=== PATIENT | female | born 1985 | race Caucasian/White ===

== ENCOUNTER 2016-08-14 14:56 | Emergency (ER) | payer BC ==
[~2016-08-14] VITALS: Ht 170.2 cm; Wt 70.5 kg
[2016-08-14 15:01] VITALS: TEMP 36.8; Ht 170.2 cm; Wt 70.5 kg
[2016-08-14] MEDS ORDERED: IBUP-103 PO (15:21)
--- NOTE | 2016-08-14 15:36 | DIAGNOSTIC IMAGING REPORT ---
CT OF THE HEAD WITHOUT CONTRAST CLINICAL HISTORY: Right sided head injury. COMPARISON STUDY: No previous studies for comparison. CT DOSE: 638.56 mGycm TECHNIQUE: Helical axial images of the head were obtained without IV contrast. Automated exposure control was utilized for the study. FINDINGS: No acute intracranial hemorrhage, midline shift or mass effect is present. Ventricular system is normal. Basilar cisterns are patent. No extra-axial collections are present. Rao-white differentiation is maintained. There is no calvarial fracture. There is mild mucosal thickening of the sphenoid sinuses. IMPRESSION: 1. No acute intracranial findings. 2. No calvarial fracture. 3. Mild mucosal thickening of the sphenoid sinuses. Electronically signed by: Jose Roblero M.D. 08/14/2016 3:35 PM Dictated Date/Time: 08/14/2016 3:33 PM
--- NOTE | 2016-08-14 16:00 | EMERGENCY ROOM VISIT NOTE ---
ED Visit Note First contact with patient: 15:06 Chief Complaint: Head Injury RIGHT Side History of Present Illness: Patient is a 31-year-old female who presents to the emergency Department this afternoon for evaluation after sustaining a head injury last evening. She reports that while attempting to get into her car she hit the side of her head on the vehicle. She had immediate pain which was very intense in nature. She reports persistent dull pain throughout the day. She is had issues with focus and concentration today as well as some mild blurry vision. She does report a history of migraine headaches, but reports that this does not feel the same. She is not been nauseated. There is been no vomiting. There is been no photophobia or phonophobia. The patient is tried ibuprofen with minimal relief of symptoms. She complains some pain radiating down the RIGHT side of her head and neck. The patient rates her current discomfort as a 5/10. She denies any fevers, chills, dizziness, lightheadedness, vomiting, or numbness/weakness into the extremities. The patient uses Sumatriptan as needed for migraines. There is no other reported medical conditions otherwise. Medications: As above. Allergies: No known allergies. PMH: No pertinent past medical history. SHx: Patient is a 31-year-old female who lives locally. ROS: All pertinent positive and negative review of systems are appropriately documented in the History of Present Illness. Physical Exam: VITAL SIGNS - Vital signs and nursing notes were reviewed. GENERAL - 31-year-old female appearing her stated age who is in no acute distress. Communicates well with provider and answers questions appropriately. HEAD - Normocephalic, Atraumatic. No De La Paz's Sign or Raccoon's Eyes. No depressed skull fractures palpable. EYES - PERRL with EOMI bilaterally. Sclera anicteric. Palpebral conjunctiva pink and moist with no injection noted. EARS - No deformities of external structures noted on gross examination bilaterally. No pain elicited with palpation of the tragus bilaterally. External auditory canals without discharge or otorrhea. Tympanic membranes pearly rao without retraction or bulging. NOSE - Midline and without cyanosis. No epistaxis or purulent drainage noted. Septum midline without deviation or septal hematoma noted. MOUTH/OROPHARYNX - Without perioral cyanosis. Buccal mucosa pink and moist and without leukoplakia. Tongue midline with equal elevation of palate bilaterally. No tonsillar hypertrophy, erythema, or exudates noted. Good dentition noted. NECK - Neck with FROM. Supple to palpation. No lymphadenopathy noted. No nuchal rigidity. LUNGS - Chest wall symmetric without accessory muscle use, intercostals retractions, or central cyanosis. Normal vesicular breath sounds CTA B/L. No wheezes, rales, or rhonchi appreciated. CARDIAC - RRR with S1/S2. No murmur, rubs, or gallops appreciated. EXTREMITIES - No pretibial edema present. +3/5 radial and dorsalis pedis pulses palpated throughout. FROM with no tremors, fasciculations, or clonus noted on PROM throughout. +5/5 strength noted in UE/LE bilaterally. NEUROLOGIC - Cranial nerves II through XII grossly intact. Sensory intact to light touch throughout. Patellar reflexes +2/4. Patient able to perform rapid alternating movements appropriately. Negative Romberg and Pronator Drift. Negative [id number]. PSYCH - A&Ox3 and cooperates fully with examiner. Pt is very pleasant and interacts well with examiner. IMAGING: CT OF THE HEAD WITHOUT CONTRAST CLINICAL HISTORY: Right sided head injury. COMPARISON STUDY: No previous studies for comparison. CT DOSE: 638.56 mGycm TECHNIQUE: Helical axial images of the head were obtained without IV contrast. Automated exposure control was utilized for the study. FINDINGS: No acute intracranial hemorrhage, midline shift or mass effect is present. Ventricular system is normal. Basilar cisterns are patent. No extra-axial collections are present. Rao-white differentiation is maintained. There is no calvarial fracture. There is mild mucosal thickening of the sphenoid sinuses. IMPRESSION: 1. No acute intracranial findings. 2. No calvarial fracture. 3. Mild mucosal thickening of the sphenoid sinuses. ED Course: Patient was seen and evaluated by myself. I had a lengthy discussion with the patient and regarding symptoms. CT of the head was obtained. Imaging results above. Imaging results were reviewed with the patient and family member who acknowledge understanding. The patient was educated on brain rest as well as worrisome symptoms for return visit to the emergency department. Patient discharged home in good condition with her driving. In the evaluation and treatment of this patient, the following differential diagnoses were considered: Concussion, Contrecoup Injury, Brain Tumor, Depression, Encephalitis, Hypothyroidism, Meningitis, CVA, TIA, Migraine, Cluster Headache, Intracranial Abnormality, Intracranial Hemorrhage, Subdural Hematoma, Subarachnoid Hemorrhage, Hydrocephalus. Impression: Closed Head Injury, Concussion Discharge Instructions: You have been treated in the Emergency Department for a Closed Head Injury. CT Scan of your head/brain demonstrated no acute bleeding or other abnormalities. This does not completely rule out the risk for future damage to the brain. For pain control, you can use the following akyu-oyb-sqkvvzu medicines (if >12 yo): - Regular strength (325mg/tab) Tylenol (acetaminophen) 2 tabs every 4-6 hours as needed. Do not exceed 12 tablets in a 24 hour period. Avoid taking more than 4 grams (4000 mg) of Tylenol per day. This includes any other sources of acetaminophen you may take on a regular basis. - Regular strength (200 mg/tab) Advil (ibuprofen) 1-2 tabs every 4-6 hours as needed. Do not exceed a dose of 3200 mg per day. You should relax in a quiet, dark place for the rest of the day. Avoid any possible triggers including: cigarette smoke, caffeine, nicotine, chocolate, wine, beer, loud noises or music, or bright lights. You should schedule a follow-up appointment in 2-3 days with your Primary Care Provider or established Neurologist for further evaluation and treatment of your Headache. Return to the Emergency Department if your current symptoms worsen despite treatment course outlined above, or if you develop any of the following symptoms : intractable pain despite aforementioned treatment course, visual disturbances , loss of vision, unilateral weakness or facial drooping, slurring of speech, loss of coordination, or loss of consciousness. Current/Historical Medications Scheduled Ibuprofen Tab (Advil), 400-600 MG PO Q6H Allergies Coded Allergies: No Known Allergies (Unverified , 08/14/16) Vital Signs Date Time Temp Pulse Resp B/P Pulse Ox O2 Delivery O2 Flow Rate FiO2 08/14/16 16:07 71 16 125/69 98 Room Air 08/14/16 15:04 18 08/14/16 15:01 36.8 76 20 123/68 99 Room Air Departure Information Impression Primary Impression: Closed head injury Additional Impression: Concussion Dispostion Home / Self-Care Condition GOOD Referrals No Doctor, Assigned (PCP) Patient Instructions ED Concussion, Replaced By [facility] Additional Instructions You have been treated in the Emergency Department for a Closed Head Injury. CT Scan of your head/brain demonstrated no acute bleeding or other abnormalities. This does not completely rule out the risk for future damage to the brain. For pain control, you can use the following citp-yhv-tswjayn medicines (if >12 yo): - Regular strength (325mg/tab) Tylenol (acetaminophen) 2 tabs every 4-6 hours as needed. Do not exceed 12 tablets in a 24 hour period. Avoid taking more than 4 grams (4000 mg) of Tylenol per day. This includes any other sources of acetaminophen you may take on a regular basis. - Regular strength (200 mg/tab) Advil (ibuprofen) 1-2 tabs every 4-6 hours as needed. Do not exceed a dose of 3200 mg per day. You should relax in a quiet, dark place for the rest of the day. Avoid any possible triggers including: cigarette smoke, caffeine, nicotine, chocolate, wine, beer, loud noises or music, or bright lights. You should schedule a follow-up appointment in 2-3 days with your Primary Care Provider or established Neurologist for further evaluation and treatment of your Headache. Return to the Emergency Department if your current symptoms worsen despite treatment course outlined above, or if you develop any of the following symptoms : intractable pain despite aforementioned treatment course, visual disturbances , loss of vision, unilateral weakness or facial drooping, slurring of speech, loss of coordination, or loss of consciousness. Problem Qualifiers Primary Impression: Closed head injury Encounter type: initial encounter Qualified Codes: S09.90XA - Unspecified injury of head, initial encounter Additional Impression: Concussion Encounter type: initial encounter Loss of consciousness presence/duration: without LOC Qualified Codes: S06.0X0A - Concussion without loss of consciousness, initial encounter
[2016-08-14 16:07] VITALS: BP 125/69; PULSE 71; O2SAT 98
== END 2016-08-14 16:07 | disposition home or self-care (01) ==
LOC: C.EDB 14:58 → EDBD 14:58 → C.EDD 16:07
DX: S06.0X0A Concussion without loss of consciousness, initial encounter (principal); W22.8XXA Striking against or struck by other objects, initial encounter

== ENCOUNTER → 2017-05-15 | Outpatient (CLI) | payer BC ==
[~2017-05-15] MED LIST: IBUP-103 PO
--- NOTE | 2017-05-15 12:17 | DIAGNOSTIC IMAGING REPORT ---
CHEST 2 VIEWS ROUTINE HISTORY: 32 years-old Female R07.89 Atypical chest [id number] acute atypical chest pain COMPARISON: None available TECHNIQUE: PA and lateral views of the chest FINDINGS: Cardiomediastinal and hilar silhouettes are within normal limits. There is no pneumothorax, pleural effusion, focal airspace consolidation or overt pulmonary edema. Bones of the chest are grossly intact. IMPRESSION: No acute cardiopulmonary process. The above report was generated using voice recognition software. It may contain grammatical, syntax or spelling errors. Electronically signed by: Victor Manuel Pearce M.D. 05/15/2017 12:16 PM Dictated Date/Time: 05/15/2017 12:15 PM
--- NOTE | 2017-05-15 12:21 | DIAGNOSTIC IMAGING REPORT ---
R KNEE 3 VIEWS CLINICAL HISTORY: M25.561 Knee pain, [id number] pain COMPARISON: None. DISCUSSION: The bones and joint spaces appear intact. There is no evidence of fracture, dislocation or bony disease. There is no evidence for soft tissue swelling. IMPRESSION: Negative study. The above report was generated using voice recognition software. It may contain grammatical, syntax or spelling errors. Electronically signed by: Handy Pascal M.D. 05/15/2017 12:20 PM Dictated Date/Time: 05/15/2017 12:19 PM
[2017-05-15 13:11] LABS: BASO % 0.4 %; BASO ABS # 0.02 K/uL (0-0.2); COMPLETE YES; EOS % 1.3 %; HEMATOCRIT 41.1 % (37-47); LYMPH % 30.3 %; LYMPH ABS # 1.59 K/uL (1.2-3.4); MEAN CELL VOLUME 89.5 fL (80-100); MEAN CORPUSCULAR HEMOGLOBIN 30.3 pg (25-34); MEAN CORPUSCULAR HGB CONC 33.8 g/dl (32-36); MEAN PLATELET VOLUME 11.3 fL (7.4-10.4); MONO % 6.5 %; NEUT % 61.5 %; PLATELET COUNT 191 K/uL (130-400); RED BLOOD COUNT 4.59 M/uL (4.2-5.4); WHITE BLOOD COUNT 5.25 K/uL (4.8-10.8)
[2017-05-15 13:29] LABS: ALT/SGPT 15 U/L (12-78); AST/SGOT 12 U/L (15-37); BLOOD UREA NITROGEN 14 mg/dl (7-18); BUN/CREATININE RATIO 17.8 (10-20); CALCIUM 8.7 mg/dl (8.5-10.1); CARBON DIOXIDE 27 mmol/L (21-32); CHLORIDE 105 mmol/L (98-107); CREATININE 0.81 mg/dl (0.60-1.20); GLUCOSE 90 mg/dl (70-99); POTASSIUM 3.8 mmol/L (3.5-5.1); SODIUM 139 mmol/L (136-145)
[2017-05-15 13:40] LABS: ALKALINE PHOSPHATASE 45 U/L (45-117); CHOLESTEROL 202 mg/dl (0-200); CHOLESTEROL/HDL RATIO 3.4; HDL CHOLESTEROL 60 mg/dl; LDL CHOLESTEROL CALCULATED 131 mg/dl; TRIGLYCERIDES 57 mg/dl (0-150); VERY LOW DENSITY LIPOPROT CALC 11 mg/dl
[2017-05-15 14:09] LABS: LYME DISEASE AB IGG NEG (NEG)
[2017-05-15 14:30] LABS: LYME DISEASE AB IGM POS (NEG)
[2017-05-15 14:51] LABS: URINE APPEARANCE CLEAR (CLEAR); URINE BILIRUBIN NEG (NEG); URINE COLOR YELLOW; URINE NITRITE NEG (NEG); URINE PH 6.5 (4.5-7.5); URINE SPECIFIC GRAVITY 1.009 (1.000-1.030); UROBILINOGEN NEG (NEG); ZZUR CULT IF INDIC CLEAN CATCH NO
[2017-05-15 14:53] LABS: MANUAL MICROSCOPIC REQUIRED? NO; REVIEW REQ? NO
== END | disposition home or self-care (01) ==
LOC: C.RAD1850 11:47
PROVIDERS: ATTEND Internal Medicine
DX: R07.89 Other chest pain (principal); M25.561 Pain in right knee; Z13.6 Encounter for screening for cardiovascular disorders

== ENCOUNTER → 2017-06-03 | Outpatient (CLI) | payer BC ==
[~2017-06-03] MED LIST changes: +OPTIRAY 320 IV PRN
--- NOTE | 2017-06-03 15:44 | DIAGNOSTIC IMAGING REPORT ---
(CHEST) THORAX WITH CT DOSE: 213.31 mGy.cm HISTORY: Chest pain ATYPICAL CHEST PAIN TECHNIQUE: Multiaxial CT images of the chest were performed following the intravenous administration of contrast. A dose lowering technique was utilized adhering to the principles of ALARA. COMPARISON: None. FINDINGS: The lungs are clear. The mediastinal vascular structures are within normal limits. No mediastinal or hilar lymphadenopathy. No pleural effusion or pneumothorax. Limited views of the upper abdomen demonstrate a normal liver and spleen. IMPRESSION: No significant abnormality identified within the chest. The above report was generated using voice recognition software. It may contain grammatical, syntax or spelling errors. Electronically signed by: Handy Pascal M.D. 06/03/2017 3:43 PM Dictated Date/Time: 06/03/2017 3:41 PM
== END | disposition home or self-care (01) ==
LOC: C.CTS 15:20
PROVIDERS: ATTEND Internal Medicine
DX: R07.89 Other chest pain (principal)